=== PATIENT | female | born 1945 | race Hispanic/Latino ===

== ENCOUNTER 2017-09-03 05:47 | Emergency (ER) | payer MEDICARE ==
[2017-09-03 05:47] VITALS: BMI 28.8
--- NOTE | 2017-09-03 06:23 | C.PDOC ---
Time Seen by Provider: 09/03/17 06:12 Chief Complaint (Nursing): Lower Extremity Problem/Injury Past Medical History Vital Signs: Last Vital Signs Temp 97.9 F 09/03/17 05:51 Pulse 75 09/03/17 05:51 Resp 18 09/03/17 05:51 BP 165/67 H 09/03/17 05:51 Pulse Ox 96 09/03/17 05:51 - Medical History PMH: Arthritis, Hiatal Hernia, HTN, Hypercholesterolemia, Hyperthyroidism, Hypothyroidism Surgical History: Denies: Pacemaker Family History: States: CAD - Social History Hx Alcohol Use: Yes (SOCIALLY,BUT NOT IN A YEAR) Hx Substance Use: No - Immunization History Hx Tetanus Toxoid Vaccination: No Hx Influenza Vaccination: Yes Hx Pneumococcal Vaccination: Yes ED Course And Treatment O2 Sat by Pulse Oximetry: 96 Disposition - Disposition Referrals: Linda Haley MD [Primary Care Provider] - Forms: [facility] (Burkinan)
--- NOTE | 2017-09-03 06:24 | C.PDOC ---
History Of Present Illness 72 year old female presents to the ER with a complaint of lower back pain that radiates to the left lower extremity for the past 3 days. Patient states she has a Hx of back pain but notes it is worse now. Patient reports taking motrin yesterday with no relief. Denies trauma, weakness, numbness, or incontinence. Time Seen by Provider: 09/03/17 06:12 Chief Complaint (Nursing): Lower Extremity Problem/Injury History Per: Patient History/Exam Limitations: no limitations Onset/Duration Of Symptoms: Days Current Symptoms Are (Timing): Still Present Recent travel outside of the [place]: No Past Medical History Reviewed: Historical Data, Nursing Documentation, Vital Signs Vital Signs: Last Vital Signs Temp 97.9 F 09/03/17 05:51 Pulse 75 09/03/17 05:51 Resp 18 09/03/17 05:51 BP 165/67 H 09/03/17 05:51 Pulse Ox 96 09/03/17 06:28 - Medical History PMH: Arthritis, Hiatal Hernia, HTN, Hypercholesterolemia, Hyperthyroidism, Hypothyroidism Family History: States: CAD - Social History Hx Alcohol Use: Yes (SOCIALLY,BUT NOT IN A YEAR) Hx Substance Use: No - Immunization History Hx Tetanus Toxoid Vaccination: No Hx Influenza Vaccination: Yes Hx Pneumococcal Vaccination: Yes Review Of Systems Genitourinary: Negative for: Incontinence Musculoskeletal: Positive for: Back Pain, Leg Pain Neurological: Negative for: Weakness, Numbness Physical Exam - Physical Exam Appears: Non-toxic, Other (obese) Skin: Normal Color, Warm, Dry Head: Atraumatic, Normacephalic Eye(s): bilateral: Normal Inspection Back: Paraspinal Tenderness (left lumbar) Extremity: Normal ROM (x4) Neurological/Psych: Oriented x3, Normal Speech, Normal Motor, Normal Sensation Gait: Steady ED Course And Treatment O2 Sat by Pulse Oximetry: 96 (Room air) Pulse Ox Interpretation: Normal Progress Note: Toradol IM and tylenol administered. Patient reports improvement of pain, she is ambulatory in the ER without any pain or discomfort, will discharge home instructions to follow up with PMD. Reevaluation Time: 07:00 Reassessment Condition: Improved Disposition Counseled Patient/Family Regarding: Diagnosis, Need For Followup, Rx Given - Disposition Referrals: Linda Haley MD [Primary Care Provider] - Disposition: HOME/ ROUTINE Disposition Time: 06:49 Condition: STABLE Additional Instructions: Please follw up[ with Dr Haley Continue motrin and tylenol extra strngth Return toER if worse Instructions: Low Back Pain in Adults Forms: [facility] (Lithuanian) - Clinical Impression Clinical Impression: Low back pain - PA / INSURANCE LOSS ASSESSOR / Resident Statement MD/DO has reviewed & agrees with the documentation as recorded. - Scribe Statement The provider has reviewed the documentation as recorded by the Scribliliana Arias All medical record entries made by the Jarrellibliliana were at my direction and personally dictated by me. I have reviewed the chart and agree that the record accurately reflects my personal performance of the history, physical exam, medical decision making, and the department course for this patient. I have also personally directed, reviewed, and agree with the discharge instructions and disposition.
[2017-09-03 07:10] VITALS: BP 148/79; PULSE 81; RESP 20; TEMP 98.1; O2SAT 98
== END 2017-09-03 10:34 | disposition home or self-care (01) ==
LOC: SUPCPDRO 05:47 → C.ER 05:47
DX: M54.5 Low back pain (principal)
CPT/HCPCS: 96372; 99283; J1885

== ENCOUNTER 2017-09-09 12:18 | Inpatient (IN) | payer MEDICARE ==
[2017-09-09 12:19] VITALS: BMI 28.8
[2017-09-09] MEDS ORDERED: Lidocaine 5% Patch TD STA (13:20)
[2017-09-09] MEDS ORDERED: Lidocaine 5% Patch TD ONE (13:43)
--- NOTE | 2017-09-09 13:54 | C.PDOC ---
History Of Present Illness Patient presents to ED with c/o back pain shooting down legs bilaterally for 1+ week. Patient states pain is worse with movement and went to see PMD yesterday, took Tylenol extra strength with no relief. Patient was scheduled CT scan by PMD but pain became worse today prompted visit to ED. Patient reports that she is now taking Percocet without relief and is unable to ambulate. Patient denies abdominal pain, bowel/bladder incontinence, nausea, vomiting, weakness, numbness or any other complaints at this time. Time Seen by Provider: 09/09/17 12:41 Chief Complaint (Nursing): Back Pain History Per: Patient History/Exam Limitations: no limitations Onset/Duration Of Symptoms: Days Current Symptoms Are (Timing): Still Present Quality Of Discomfort: "Pain" Exacerbating Factor(s): Movement Past Medical History Reviewed: Historical Data, Nursing Documentation, Vital Signs Vital Signs: Last Vital Signs Temp 98.5 F 09/09/17 12:31 Pulse 74 09/09/17 12:31 Resp 18 09/09/17 12:31 BP 167/82 H 09/09/17 12:31 Pulse Ox 95 09/09/17 15:31 - Medical History PMH: Arthritis, Hiatal Hernia, HTN, Hypercholesterolemia, Hyperthyroidism, Hypothyroidism Surgical History: No Surg Hx Family History: States: CAD - Social History Hx Alcohol Use: Yes (SOCIALLY,BUT NOT IN A YEAR) Hx Substance Use: No - Immunization History Hx Tetanus Toxoid Vaccination: No Hx Influenza Vaccination: Yes Hx Pneumococcal Vaccination: Yes Review Of Systems Constitutional: Negative for: Fever, Chills Gastrointestinal: Negative for: Nausea, Vomiting, Abdominal Pain Genitourinary: Negative for: Dysuria, Incontinence Musculoskeletal: Positive for: Back Pain, Leg Pain Skin: Negative for: Rash Neurological: Negative for: Weakness, Numbness Physical Exam - Physical Exam Appears: Non-toxic, No Acute Distress Skin: Warm, Dry, No Rash Head: Atraumatic, Normacephalic Eye(s): bilateral: Normal Inspection, PERRL, EOMI Oral Mucosa: Moist Throat: No Erythema, No Exudate Neck: Normal ROM, No Midline Cervical Tenderness, No Paracervical Tenderness, No Step Off Deformity, Supple Chest: Symmetrical, No Tenderness Cardiovascular: Rhythm Regular, No Friction Rub, No Murmur Respiratory: Normal Breath Sounds, No Rales, No Rhonchi, No Wheezing Gastrointestinal/Abdominal: Bowel Sounds (active), Soft, No Tenderness, No Guarding, No Rebound Back: No Vertebral Tenderness, Paraspinal Tenderness, Straight Leg Raising Extremity: Normal ROM, Capillary Refill (<2 seconds), No Swelling Neurological/Psych: Oriented x3, Normal Speech, Normal Cognition, Normal Motor, Normal Sensation Gait: Unable To Assess ED Course And Treatment - Laboratory Results Result Diagrams: 09/09/17 13:42 09/09/17 13:42 O2 Sat by Pulse Oximetry: 95 (RA) Pulse Ox Interpretation: Normal - CT Scan/US CT lumbar/spine Other Rad Studies (CT/US): Read By Radiologist, Radiology Report Reviewed CT/US Interpretation: IMPRESSION: 1. Age indeterminate superior endplate compression fracture deformity in the L4 vertebral body. Severe diffuse bone demineralization. 2. Multilevel degenerative disc disease, worse at L3-4 with mild spinal canal stenosis, right far lateral disc protrusion which compresses the exiting right L3 nerve root and severe right as well as moderate left neural foraminal narrowing. 3. Additional comments as described above. Medical Decision Making Medical Decision Making: Plan: Blood work, CT scan lumbar/spine ordered. Toradol and Lidoderm administered Pain medications given without relief. Decadron and Morphine ordered. The case was discussed with Dr. Andria Haley (PMD) who agrees patient is unsafe for discharge. The case was discussed with Dr. Ryan Haley who agrees to admit the patient for compression fracture and have neurosurgeon consult. Disposition - Disposition Disposition: HOSPITALIZED Disposition Time: 15:33 Condition: FAIR Forms: [facility] (Spanish) - POA Present On Arrival: None - Clinical Impression Clinical Impression: Compression fracture, Intractable back pain - PA / FASHION ARTIST / Resident Statement MD/DO has reviewed & agrees with the documentation as recorded. - Scribe Statement The provider has reviewed the documentation as recorded by the Marvin Garibay All medical record entries made by the Marvin were at my direction and personally dictated by me. I have reviewed the chart and agree that the record accurately reflects my personal performance of the history, physical exam, medical decision making, and the department course for this patient. I have also personally directed, reviewed, and agree with the discharge instructions and disposition.
[2017-09-09 14:00] LABS: BASO # 0.1 K/uL (0.0-0.2); BASO % 1.3 % (0.0-2.0); HEMOGLOBIN 13.3 g/dL (11.0-16.0); MEAN CORPUSCULAR HEMOGLOBIN 31.9 pg (27.0-31.0); MEAN CORPUSCULAR HGB CONC 34.6 g/dL (33.0-37.0); MONO # 0.6 K/uL (0.0-0.8); MONO % 9.2 % (0.0-10.0); NEUT # 4.8 K/uL (1.8-7.0); NEUT % 74.5 % (50.0-75.0); NRBC % 0.1 % (0.0-2.0); RBC 4.18 Mil/uL (3.80-5.20); RED CELL DISTRIBUTION WIDTH 13.4 % (11.5-14.5); WHITE BLOOD COUNT 6.4 K/uL (4.8-10.8)
[2017-09-09 14:02] LABS: MEAN CELL VOLUME 92.1 fL (81.0-99.0)
[2017-09-09 14:17] LABS: ALB/GLOB RATIO 1.1 (1.0-2.1); ALBUMIN 3.6 g/dL (3.5-5.0); ALT/SGPT 9 U/L (9-52); AST/SGOT 15 U/L (14-36); BLOOD UREA NITROGEN 11 mg/dL (7-17); CALCIUM 8.9 mg/dl (8.6-10.4); GFR AFRICAN-AMERICAN > 60; GFR NON-AFRICAN AMERICAN > 60
--- NOTE | 2017-09-09 14:57 | CT ---
PROCEDURE: CT Lumbar Spine without contrast HISTORY: back pain radiating down the legs COMPARISON: None. TECHNIQUE: Axial computed tomography images were obtained of the lumbar spine without the use of intravenous contrast. Coronal and sagittal reformatted images were created and reviewed. Radiation dose: Total exam DLP = 1701.72 mGy-cm. This CT exam was performed using one or more of the following dose reduction techniques: Automated exposure control, adjustment of the mA and/or kV according to patient size, and/or use of iterative reconstruction technique. FINDINGS: VERTEBRAE: There is normal alignment of the lumbar vertebral bodies. There is normal lumbar lordosis. There is an age indeterminate superior endplate compression fracture deformity in the L4 vertebral body. There is severe diffuse bone demineralization. There is no spondylolysis or spondylolisthesis. DISCS/SPINAL CANAL/NEURAL FORAMINA: Evaluation of the discs, spinal canal and nerve roots of cauda equina is limited on noncontrast CT examination. Allowing for this L1-2: Diffuse posterior disc bulge and superimposed right far lateral disc protrusion which abuts the exiting right L1 nerve root. Mild spinal canal stenosis and moderate neural foraminal narrowing. L2-3: Diffuse posterior disc bulge with superimposed right far lateral disc protrusion which abuts the exiting L2 nerve root. Mild spinal canal stenosis and moderate neural foraminal narrowing. L3-4: Diffuse posterior disc bulge with superimposed right far lateral disc protrusion which mildly compresses the exiting right L3 nerve root. Moderate bilateral facet arthropathy contribute to severe right and moderate left neural foraminal narrowing. L4-5: Diffuse posterior disc bulge without spinal canal stenosis. Moderate bilateral facet arthropathy contribute to moderate to severe neural foraminal narrowing. L5-S1: Posterior disc bulge without central spinal canal stenosis. Moderate bilateral facet arthropathy contributes to mild right and severe left neural foraminal narrowing. PARASPINAL SOFT TISSUES: There is fatty atrophy of the paraspinous muscles. OTHER FINDINGS: There is sigmoid diverticulosis without CT evidence for acute diverticulitis. IMPRESSION: 1. Age indeterminate superior endplate compression fracture deformity in the L4 vertebral body. Severe diffuse bone demineralization. 2. Multilevel degenerative disc disease, worse at L3-4 with mild spinal canal stenosis, right far lateral disc protrusion which compresses the exiting right L3 nerve root and severe right as well as moderate left neural foraminal narrowing. 3. Additional comments as described above.
[2017-09-09] MEDS ORDERED: Dexamethasone 4 mg/1 ml IVP STA (15:14)
[2017-09-09] MEDS ORDERED: Morphine 4 MG/ML VIAL ONE (15:24)
[2017-09-09] MEDS ORDERED: Dexamethasone 4 mg/1 ml IVP SCH (16:45)
--- NOTE | 2017-09-09 19:55 | CP.PCM.HP ---
<Nathalie GrovesRaffaele - Last Filed: 09/09/17 19:44> History of Present Illness - History of Present Illness History of Present Illness: CC: low back pain HPI: Patient is a 72 y/o F with PMHX of HTN, HLD, Hypothyroidism, glaucoma bilaterally, and hiatal hernia who presents today for worsening low back pain. Patient states the pain started last week with no inciting event. Everyday the pain has gotten worse. Last week patient came to [facility] and was discharged from the ED. This week (2 days ago) patient finally went to her primary care doctor because the pain was getting worse. Patient was given Percocet, Cyclobenzaprine 10mg, and Meloxicam 7.5mg qid. Patient was told she would need to get a CT. Patient rented out a wheelchair because it was too painful to walk. Patient was going to get a CT tomorrow (the only day someone could help take her), but this morning her pain was very severe. She felt like she could not get out of bed, but was able to once to go to the bathroom to urinate. Patient called her PMD who told her to come to the ED. Patient says she has never had pain like this. Patient explains that the pain radiates from her low back down the posterior left leg to the knee, and down the posterior right leg to the ankle. Patient has had no falls or trauma. Patient denies any incontinence of urine or feces. Patient denies any numbness, tingling or weakness. Patient denies fevers, chills, diaphoresis, headaches, sore throat, chest pain, palpitations, SOB, cough, abdominal pain, nausea, vomiting, diarrhea , constipation, rash, or weight changes. Patient has not travelled recently and has had no sick contacts. PMD: Dr. Juan David Haley Full Code Proxy: Eric Dumont (brother) house phone: [phone], no cell phone PMHX:HTN, HLD, Hypothyroidism, glaucoma bilaterally, and hiatal hernia Psurg: b/l oophorectomy for cysts in 1997, humerus fracture with metal tiago placement 1999, deviated septum 2011 Fam hx: Mom - heart disease, Dad- pacemaker placed at age 75, half sister- open heart surgery, ESRD on dialysis, Brother- CAD, 1 stent placed at 70 Social: denies tobacco or drugs. drinks alcohol a few times per year. lives with brother and nephew. retired 10 years ago Home meds: Latanprost 1 drop per eye daily, Synthroid 100mcg daily, Pantoprazole 40mg daily, Atorvastatin 20mg daily, Diltiazem ER 300mg daily, Losartan/HCTZ unknown dose Present on Admission - Present on Admission Any Indicators Present on Admission: No History of DVT/PE: No History of Uncontrolled Diabetes: No Urinary Catheter: No Decubitus Ulcer Present: No Review of Systems - Constitutional Constitutional: absent: Chills, Fever - EENT Eyes: absent: Blurred Vision Nose/Mouth/Throat: absent: Nasal Congestion, Sore Throat - Cardiovascular Cardiovascular: absent: Chest Pain, Diaphoresis, Dyspnea, Leg Edema, Palpitations - Respiratory Respiratory: absent: Cough - Gastrointestinal Gastrointestinal: absent: Abdominal Pain, Constipation, Diarrhea, Nausea, Vomiting - Genitourinary Genitourinary: absent: Change in Urinary Stream, Dysuria, Hematuria - Musculoskeletal Musculoskeletal: Back Pain, Stiffness. absent: Numbness, Tingling - Integumentary Integumentary: absent: Rash - Neurological Neurological: absent: Tingling, Vertigo, Weakness Past Patient History - Infectious Disease Hx of Infectious Diseases: None - Past Social History Smoking Status: Never Smoked - CARDIAC Hx Hypercholesterolemia: Yes Hx Hypertension: Yes - NEUROLOGICAL Hx Paralysis: No - HEENT Hx Glaucoma: Yes - ENDOCRINE/METABOLIC Hx Hyperthyroidism: Yes Hx Hypothyroidism: Yes - HEMATOLOGICAL/ONCOLOGICAL Hx Blood Transfusions: No Hx Blood Transfusion Reaction: No - MUSCULOSKELETAL/RHEUMATOLOGICAL Hx Arthritis: Yes - PSYCHIATRIC Hx Substance Use: No - SURGICAL HISTORY Hx Surgeries: Yes (NASAL SURGERY 3YRS AGO, CATARACTS 2014, 2013,METAL TIAGO L HUMEROUS) Other/Comment: 8 yrs ago metal tiago to left shoulder post fall. bilat. oopherectomy - ANESTHESIA Hx Anesthesia: Yes Hx Anesthesia Reactions: No Hx Malignant Hyperthermia: No Meds Allergies/Adverse Reactions: Allergies Allergy/AdvReac Type Severity Reaction Status Date / Time No Known Allergies Allergy Verified 09/09/17 12:34 Physical Exam - Constitutional Appears: Non-toxic, No Acute Distress - Head Exam Head Exam: ATRAUMATIC, NORMAL INSPECTION, NORMOCEPHALIC - Eye Exam Eye Exam: EOMI, Normal appearance, PERRL Pupil Exam: NORMAL ACCOMODATION - ENT Exam ENT Exam: Mucous Membranes Moist - Neck Exam Neck exam: Negative for: Tenderness - Respiratory Exam Respiratory Exam: Clear to Auscultation Bilateral, NORMAL BREATHING PATTERN. absent: Rales, Rhonchi, Wheezes, Respiratory Distress, Stridor - Cardiovascular Exam Cardiovascular Exam: REGULAR RHYTHM, RRR, +S1, +S2 - GI/Abdominal Exam GI & Abdominal Exam: Normal Bowel Sounds, Soft. absent: Tenderness - Extremities Exam Extremities exam: Positive for: normal inspection. Negative for: pedal edema, tenderness Additional comments: 5/5 strength both LE full sensation intact pain with passive leg elevation at about 50 degrees bilaterally - Back Exam Back exam: NORMAL INSPECTION, vertebral tenderness Additional comments: low back tenderness - Neurological Exam Neurological exam: Alert, Oriented x3 - Psychiatric Exam Psychiatric exam: Normal Affect, Normal Mood - Skin Skin Exam: Intact, Normal Color, Warm Results - Vital Signs Recent Vital Signs: Last Vital Signs Temp 97.9 F 09/09/17 18:20 Pulse 62 09/09/17 18:20 Resp 20 09/09/17 18:20 BP 162/81 H 09/09/17 18:20 Pulse Ox 96 09/09/17 18:20 - Labs Result Diagrams: 09/09/17 13:42 09/09/17 13:42 Labs: Laboratory Results - last 24 hr 09/09/17 09/09/17 13:42 13:42 WBC 6.4 RBC 4.18 Hgb 13.3 Hct 38.5 MCV 92.1 D MCH 31.9 H MCHC 34.6 RDW 13.4 Plt Count 278 MPV 8.0 Neut % (Auto) 74.5 Lymph % (Auto) 15.0 L [place] % (Auto) 9.2 Eos % (Auto) 0.0 Baso % (Auto) 1.3 Neut # (Auto) 4.8 Lymph # (Auto) 1.0 [place] # (Auto) 0.6 Eos # (Auto) 0.0 Baso # (Auto) 0.1 Sodium 143 Potassium 3.5 L Chloride 105 Carbon Dioxide 26 Anion Gap 16 BUN 11 Creatinine 0.6 L Est GFR ( Amer) > 60 Est GFR (Non-Af Amer) > 60 Random Glucose 95 Calcium 8.9 Total Bilirubin 0.7 AST 15 ALT 9 D Alkaline Phosphatase 155 H Total Protein 6.9 Albumin 3.6 Globulin 3.3 Albumin/Globulin Ratio 1.1 Assessment & Plan - Assessment and Plan (Free Text) Assessment: L4 Vertebral Body Fracture with Spinal Stenosis at L3+L4 and multilevel degenerative disc disease * Decadron 5mg ivp q8h * Neurosurg consulted, Dr. Almodovar, help appreciated * PT/OT eval and treat HTN * Diltiazem 300mg before breakfast * HCTZ 12.5mg before lunch * Losartan 50mg before dinner HLD * Crestor 10mg po HS * f/u Lipid panel Hypothyroidism * Synthroid 100mcg daily * f/u TSH, Free T4 B/L Glaucoma * Latanprost 1 drop per eye daily Hx Hiatal Hernia * Protonix 40mg po daily Prophylaxis * Heparin 5000 sc q8h * SCDs * Protonix 40mg po daily * Heart healthy and low carb diet <Ryan Haley - Last Filed: 09/09/17 20:26> Results - Vital Signs Recent Vital Signs: Last Vital Signs Temp 97.9 F 09/09/17 18:20 Pulse 62 09/09/17 18:20 Resp 20 09/09/17 18:20 BP 162/81 H 09/09/17 18:20 Pulse Ox 96 09/09/17 18:20 - Labs Result Diagrams: 09/09/17 13:42 09/09/17 13:42 Labs: Laboratory Results - last 24 hr 09/09/17 09/09/17 13:42 13:42 WBC 6.4 RBC 4.18 Hgb 13.3 Hct 38.5 MCV 92.1 D MCH 31.9 H MCHC 34.6 RDW 13.4 Plt Count 278 MPV 8.0 Neut % (Auto) 74.5 Lymph % (Auto) 15.0 L [place] % (Auto) 9.2 Eos % (Auto) 0.0 Baso % (Auto) 1.3 Neut # (Auto) 4.8 Lymph # (Auto) 1.0 [place] # (Auto) 0.6 Eos # (Auto) 0.0 Baso # (Auto) 0.1 Sodium 143 Potassium 3.5 L Chloride 105 Carbon Dioxide 26 Anion Gap 16 BUN 11 Creatinine 0.6 L Est GFR ( Amer) > 60 Est GFR (Non-Af Amer) > 60 Random Glucose 95 Calcium 8.9 Total Bilirubin 0.7 AST 15 ALT 9 D Alkaline Phosphatase 155 H Total Protein 6.9 Albumin 3.6 Globulin 3.3 Albumin/Globulin Ratio 1.1 Attending/Attestation - Attestation I have personally seen and examined this patient.: Yes I have fully participated in the care of the patient.: Yes I have reviewed all pertinent clinical information: Yes Notes (Text): 09/09/17 20:26 Exam, assessment and plan and orders were thoroughly gone over with the resident. Ryan Haley D.O.
[2017-09-10] MEDS: Levothyroxine 100 MCG TAB PO SCH (06:22)
[2017-09-10 07:19] LABS: BASO % 0.2 % (0.0-2.0); HEMOGLOBIN 14.6 g/dL (11.0-16.0); LYMPH # 0.5 K/uL (1.0-4.3); MEAN CELL VOLUME 91.3 fL (81.0-99.0); MEAN CORPUSCULAR HEMOGLOBIN 32.2 pg (27.0-31.0); MEAN CORPUSCULAR HGB CONC 35.3 g/dL (33.0-37.0); MONO # 0.1 K/uL (0.0-0.8); MONO % 1.4 % (0.0-10.0); NEUT # 4.3 K/uL (1.8-7.0); NEUT % 87.4 % (50.0-75.0); NRBC % 0.1 % (0.0-2.0); RBC 4.53 Mil/uL (3.80-5.20); RED CELL DISTRIBUTION WIDTH 13.4 % (11.5-14.5); WHITE BLOOD COUNT 4.9 K/uL (4.8-10.8)
[2017-09-10] MEDS: diltiaZEM 300 mg/24 Hours CD Cap PO SCH (07:35)
[2017-09-10] MEDS: Pantoprazole 40 mg EC Tab PO SCH (09:18)
[2017-09-10] MEDS ORDERED: diltiaZEM 300 mg/24 Hours CD Cap PO SCH (10:00)
--- NOTE | 2017-09-10 14:32 | CP.PCM.PN ---
<Nathalie Groves - Last Filed: 09/10/17 17:33> Subjective - Date & Time of Evaluation Date of Evaluation: 09/10/17 Time of Evaluation: 07:00 - Subjective Subjective: PGY1- Progress Note Patient seen and examined at bedside and in no acute distress. Patient says her back pain is fine at rest, but is still very painful with sitting up and movement. Patient denies the rest of ROS including chest pain, shortness of breath, abdominal pain, nausea, vomiting, constipation, or diarrhea. Objective - Vital Signs/Intake and Output Vital Signs (last 24 hours): Temp Pulse Resp BP Pulse Ox 98.1 F 67 18 165/82 H 94 L 09/10/17 07:20 09/10/17 07:20 09/10/17 07:20 09/10/17 07:20 09/10/17 07:20 - Medications Medications: Current Medications Dexamethasone (Decadron Inj) 5 mg IVP Q8H [facility] Last Admin: 09/10/17 09:18 Dose: 5 mg Diltiazem HCl (Cardizem Cd) 300 mg PO ACB [facility] Last Admin: 09/10/17 07:35 Dose: 300 mg Heparin Sodium (Porcine) (Heparin) 5,000 units SC Q8 [facility] Last Admin: 09/10/17 13:49 Dose: 5,000 units Hydrochlorothiazide (Microzide) 12.5 mg PO ACL [facility] Last Admin: 09/10/17 12:35 Dose: 12.5 mg Latanoprost (Xalatan Opht) 0 ml OU HS [facility] Levothyroxine Sodium (Synthroid) 100 mcg PO 0630 [facility] Last Admin: 09/10/17 06:22 Dose: 100 mcg Losartan Potassium (Cozaar) 50 mg PO ACD [facility] Pantoprazole Sodium (Protonix Ec Tab) 40 mg PO DAILY [facility] Last Admin: 09/10/17 09:18 Dose: 40 mg Rosuvastatin Calcium (Crestor) 10 mg PO HS [facility] Last Admin: 09/09/17 21:43 Dose: 10 mg - Labs Labs: 09/10/17 07:04 09/09/17 13:42 - Additional Findings Additional findings: - Constitutional Appears: Non-toxic, No Acute Distress - Head Exam Head Exam: ATRAUMATIC, NORMAL INSPECTION, NORMOCEPHALIC - Eye Exam Eye Exam: EOMI, Normal appearance, PERRL Pupil Exam: NORMAL ACCOMODATION - ENT Exam ENT Exam: Mucous Membranes Moist - Neck Exam Neck exam: Negative for: Tenderness - Respiratory Exam Respiratory Exam: Clear to Auscultation Bilateral, NORMAL BREATHING PATTERN. absent: Rales, Rhonchi, Wheezes, Respiratory Distress, Stridor - Cardiovascular Exam Cardiovascular Exam: REGULAR RHYTHM, RRR, +S1, +S2 - GI/Abdominal Exam GI & Abdominal Exam: Normal Bowel Sounds, Soft. absent: Tenderness - Extremities Exam Extremities exam: Positive for: normal inspection. Negative for: pedal edema, tenderness Additional comments: 5/5 strength both LE full sensation intact - Back Exam Back exam: NORMAL INSPECTION, vertebral tenderness Additional comments: low back tenderness - Neurological Exam Neurological exam: Alert, Oriented x3 - Psychiatric Exam Psychiatric exam: Normal Affect, Normal Mood - Skin Skin Exam: Intact, Normal Color, Warm Assessment and Plan - Assessment and Plan (Free Text) Assessment: L4 Vertebral Body Fracture with Spinal Stenosis at L3+L4 and multilevel degenerative disc disease * Decadron 5mg ivp q8h * Neurosurg consulted, Dr. Almodovar, help appreciated * MRI: apparent fracture traversing the S1-S2 segments with edema in S1, S2 as well as S3 segments best seen on sagittal STIR sequence. multilevel degenerative spondylosis as detailed above. * As per neurosurgery patient would benefit from injection by pain management, will consult * no neurosurgical intervention advised, no brace advised * PT/OT eval and treat HTN * Diltiazem 300mg before breakfast * HCTZ 12.5mg before lunch * Losartan 50mg before dinner HLD * Crestor 10mg po HS * Triglycerides: 86, Cholesterol: 220, LDL: 117, HDL: 67 Hypothyroidism * Synthroid 100mcg daily * TSH: 3.22, Free T4: 1.27 B/L Glaucoma * Latanprost 1 drop per eye daily Hx Hiatal Hernia * Protonix 40mg po daily Prophylaxis * Heparin 5000 sc q8h * SCDs * Protonix 40mg po daily * Heart healthy and low carb diet <Ryan Haley - Last Filed: 09/10/17 18:44> Objective - Vital Signs/Intake and Output Vital Signs (last 24 hours): Temp Pulse Resp BP Pulse Ox 98 F 68 20 150/72 95 09/10/17 15:45 09/10/17 15:45 09/10/17 15:45 09/10/17 15:45 09/10/17 15:45 Intake and Output: 09/10/17 09/10/17 06:59 18:59 Intake Total 300 Balance 300 - Medications Medications: Current Medications Dexamethasone (Decadron Inj) 5 mg IVP Q8H [facility] Last Admin: 09/10/17 17:18 Dose: 5 mg Diltiazem HCl (Cardizem Cd) 300 mg PO ACB [facility] Last Admin: 09/10/17 07:35 Dose: 300 mg Heparin Sodium (Porcine) (Heparin) 5,000 units SC Q8 [facility] Last Admin: 09/10/17 13:49 Dose: 5,000 units Hydrochlorothiazide (Microzide) 12.5 mg PO ACL [facility] Last Admin: 09/10/17 12:35 Dose: 12.5 mg Latanoprost (Xalatan Opht) 0 ml OU HS [facility] Levothyroxine Sodium (Synthroid) 100 mcg PO 0630 [facility] Last Admin: 09/10/17 06:22 Dose: 100 mcg Losartan Potassium (Cozaar) 50 mg PO ACD [facility] Last Admin: 09/10/17 17:18 Dose: 50 mg Pantoprazole Sodium (Protonix Ec Tab) 40 mg PO DAILY [facility] Last Admin: 09/10/17 09:18 Dose: 40 mg Rosuvastatin Calcium (Crestor) 10 mg PO HS [facility] Last Admin: 09/09/17 21:43 Dose: 10 mg - Labs Labs: 09/10/17 07:04 09/09/17 13:42 Attending/Attestation - Attestation I have personally seen and examined this patient.: Yes I have fully participated in the care of the patient.: Yes I have reviewed all pertinent clinical information, including history, physical exam and plan: Yes Notes (Text): 09/10/17 18:42 Patient was seen and examined at 3:15 PM Exam, assessment and plan were gone over with the resident Also on ROS: Moved her bowels and was able to use bed ng (she was afraid upon admission that she was not going to be able to do this) Medicine Team will reach out to Anesthesia 09/11/17 concerning the possibility of neuroforaminal injection as recommended by Neurosurgery. Ryan Hlaey D.O.
--- NOTE | 2017-09-10 15:20 | MRI ---
PROCEDURE: MRI lumbar spine dated 09/10/2017. HISTORY: Stenosis-fracture. Compression fracture. . Intractable pain. COMPARISON: Comparison made with CT scan of the lumbar spine dated 09/09/2017 TECHNIQUE: Multiecho multiplanar sequences were performed through the lumbar spine without the use of intravenous contrast. FINDINGS: The current study reveals. Edema within the S1, S2 and C3 segments consistent acute fracture and secondary edema. . No additional acute compression fractures no retropulsed fragments. . There are chronic appearing compression deformities of the L4, and L5 segments with scattered chronic appearing Schmorl's nodes at the L2-L3 and L1-L2 levels. . Remaining vertebral bodies otherwise exhibit normal stature. Vertebral bodies and facets normally aligned. Multilevel degenerative spondylosis. T12-L1: Mild age related disc desiccation. No disc herniation or significant disc bulge. L1-2: Mild age related disc desiccation and posterior disc space narrowing. Asymmetric disc ridge complex larger on the right than left compresses the ventral surface of the thecal sac centrally and to the to the right more so than left. Lateral recesses are narrowed on the right and adequate on the left. Central canal measured at midline is slightly narrowed. Exit foramina are marginal to slightly narrowed on the left and adequate on the right. L2-3: There is disc desiccation and disc space narrowing with small broad-based disc ridge complex that also extends into the proximal inferior margins of both exit foramina. The facets also mildly hypertrophic. Changes result in mild compressive effects on the ventral surface of the thecal sac and mild bilateral lateral recess narrowing. Central canal is marginal to minimally narrowed. Exit foramina are narrowed on the right and adequate on the left. L3-4: There is disc desiccation. Note also that inferior margin of the L3-L4 disc extends inferiorly through a defect within the superior L4 endplate. Small broad-based disc ridge complex extends into the proximal inferior margins of both exit foramina. Facet joints also hypertrophic. Lateral recesses are narrowed bilaterally more so on the left side. Central canal is slightly narrowed as well. Facet joints are hypertrophic. Exit foramina are narrowed on the right and adequate on the left. L4-5: There is mild on age related disc desiccation. Note that the inferior margin of the L4-L5 disc extends inferiorly through a mid and left parasagittal endplate defect. There is mild broad-based disc ridge complex that also extends slightly into the inferior margins of both exit foramina. Facet joints are hypertrophic. The lateral recesses are slightly narrowed more so on the left side. Central canal measured at midline is marginal to minimally narrowed. The proximal exit foramina are marginal however the mid and lateral margins of the exit foramina adequate. L5-S1: Mild disc desiccation and minor posterior disc space narrowing. . Small central and bilateral disc bulge minimally if at all flattens the ventral surface of thecal sac however the overall central canal is adequate. Facets are hypertrophic. . Exit foramina are stenotic on the left side due to encroaching disc and facet joint changes. Right exit foramen is adequate. OTHER FINDINGS: Conus terminates at approximately the inferior L1 level. IMPRESSION: Apparent fracture traversing the S1-S2 segments with edema in S1, S2 as well as S3 segments best seen on sagittal STIR sequence. Multilevel degenerative spondylosis as detailed above.
[2017-09-10] MEDS: Latanoprost 2.5 ml Opht Soln OU SCH (22:03)
--- NOTE | 2017-09-11 00:05 | CP.PCM.PN ---
<Eric Jiménez - Last Filed: 09/11/17 00:01> Subjective - Date & Time of Evaluation Date of Evaluation: 09/11/17 Time of Evaluation: 00:01 - Subjective Subjective: Patient seen and examined at bedside Doing well Still complaining of pain in the back whenever she tries to move her legs or get up from bed. No other complaints at this time Objective - Vital Signs/Intake and Output Vital Signs (last 24 hours): Temp Pulse Resp BP Pulse Ox 98 F 68 20 150/72 95 09/10/17 15:45 09/10/17 15:45 09/10/17 15:45 09/10/17 15:45 09/10/17 15:45 Intake and Output: 09/10/17 09/11/17 18:59 06:59 Intake Total 300 320 Balance 300 320 - Medications Medications: Current Medications Dexamethasone (Decadron Inj) 5 mg IVP Q8H [facility] Last Admin: 09/10/17 17:18 Dose: 5 mg Diltiazem HCl (Cardizem Cd) 300 mg PO ACB [facility] Last Admin: 09/10/17 07:35 Dose: 300 mg Heparin Sodium (Porcine) (Heparin) 5,000 units SC Q8 [facility] Last Admin: 09/10/17 22:03 Dose: 5,000 units Hydrochlorothiazide (Microzide) 12.5 mg PO ACL [facility] Last Admin: 09/10/17 12:35 Dose: 12.5 mg Latanoprost (Xalatan Opht) 0 ml OU HS [facility] Last Admin: 09/10/17 22:03 Dose: 1 ml Levothyroxine Sodium (Synthroid) 100 mcg PO 0630 [facility] Last Admin: 09/10/17 06:22 Dose: 100 mcg Losartan Potassium (Cozaar) 50 mg PO ACD [facility] Last Admin: 09/10/17 17:18 Dose: 50 mg Pantoprazole Sodium (Protonix Ec Tab) 40 mg PO DAILY [facility] Last Admin: 09/10/17 09:18 Dose: 40 mg Rosuvastatin Calcium (Crestor) 10 mg PO HS [facility] Last Admin: 09/10/17 22:03 Dose: 10 mg - Labs Labs: 09/10/17 07:04 09/09/17 13:42 - Constitutional Appears: Well - Head Exam Head Exam: ATRAUMATIC, NORMAL INSPECTION, NORMOCEPHALIC - Eye Exam Eye Exam: EOMI, Normal appearance, PERRL Pupil Exam: NORMAL ACCOMODATION, PERRL - ENT Exam ENT Exam: Mucous Membranes Moist, Normal Exam - Neck Exam Neck Exam: Full ROM, Normal Inspection. absent: Lymphadenopathy - Respiratory Exam Respiratory Exam: Clear to Ausculation Bilateral, NORMAL BREATHING PATTERN - Cardiovascular Exam Cardiovascular Exam: REGULAR RHYTHM, +S1, +S2. absent: Murmur - GI/Abdominal Exam GI & Abdominal Exam: Soft, Normal Bowel Sounds. absent: Tenderness - Extremities Exam Extremities Exam: Full ROM, Normal Capillary Refill, Normal Inspection. absent : Joint Swelling, Pedal Edema - Back Exam Back Exam: NORMAL INSPECTION - Neurological Exam Neurological Exam: Alert, Awake, CN II-XII Intact, Normal Gait, Oriented x3 - Psychiatric Exam Psychiatric exam: Normal Affect, Normal Mood - Skin Skin Exam: Dry, Intact, Normal Color, Warm Assessment and Plan (1) Lumbar vertebral fracture Assessment & Plan: Decadron 5mg IVP Q8H Neurosurg ([facility]) * Consult pain management for neuroforaminal injection * no neurosurgical intervention advised MRI: apparent fracture traversing the S1-S2 segments with edema in S1, S2 as well as S3 segments best seen on sagittal STIR sequence. multilevel degenerative spondylosis as detailed above. PT/OT eval and treat Status: Acute (2) HTN (hypertension) Assessment & Plan: Diltiazem 300mg before breakfast HCTZ 12.5mg before lunch Losartan 50mg before dinner Status: Chronic (3) HLD (hyperlipidemia) Assessment & Plan: Crestor 10mg po HS Status: Chronic (4) Hypothyroidism Assessment & Plan: Synthroid 100mcg daily Status: Chronic (5) Glaucoma Assessment & Plan: Latanprost 1 drop per eye daily Status: Chronic (6) Hiatal hernia Assessment & Plan: Protonix 40mg po daily Status: Chronic (7) Prophylactic measure Assessment & Plan: Heparin 5000 sc q8h * SCDs * Protonix 40mg po daily * Heart healthy and low carb diet Status: Acute <Ryan Haley - Last Filed: 09/11/17 17:21> Objective - Vital Signs/Intake and Output Vital Signs (last 24 hours): Temp Pulse Resp BP Pulse Ox 98.3 F 66 20 146/81 92 L 09/11/17 15:45 09/11/17 15:45 09/11/17 15:45 09/11/17 15:45 09/11/17 15:45 Intake and Output: 09/11/17 09/11/17 06:59 18:59 Intake Total 320 400 Output Total 400 300 Balance -80 100 - Medications Medications: Current Medications Dexamethasone (Decadron Inj) 5 mg IVP Q8H [facility] Last Admin: 09/11/17 09:13 Dose: 5 mg Diltiazem HCl (Cardizem Cd) 300 mg PO ACB [facility] Last Admin: 09/11/17 07:54 Dose: 300 mg Heparin Sodium (Porcine) (Heparin) 5,000 units SC Q8 [facility] Last Admin: 09/11/17 13:40 Dose: 5,000 units Hydrochlorothiazide (Microzide) 12.5 mg PO ACL [facility] Last Admin: 09/11/17 11:32 Dose: 12.5 mg Latanoprost (Xalatan Opht) 0 ml OU HS [facility] Last Admin: 09/10/17 22:03 Dose: 1 ml Levothyroxine Sodium (Synthroid) 100 mcg PO 0630 [facility] Last Admin: 09/11/17 05:49 Dose: 100 mcg Losartan Potassium (Cozaar) 50 mg PO ACD [facility] Last Admin: 09/10/17 17:18 Dose: 50 mg Pantoprazole Sodium (Protonix Ec Tab) 40 mg PO DAILY [facility] Last Admin: 09/11/17 09:13 Dose: 40 mg Rosuvastatin Calcium (Crestor) 10 mg PO HS [facility] Last Admin: 09/10/17 22:03 Dose: 10 mg - Labs Labs: 09/11/17 07:07 09/11/17 07:07 Attending/Attestation - Attestation I have personally seen and examined this patient.: Yes I have fully participated in the care of the patient.: Yes I have reviewed all pertinent clinical information, including history, physical exam and plan: Yes Notes (Text): 09/11/17 17:00 Patient was seen and examined at 8:00 AM Also on ROS: Has not moved her bowels yet today (last bowel movement was 09/10/17) NO paresthesias NO loss of bowel/bladder control Pain in the low back is controlled at this time and will only occur if she moves a particular way while in bed of if she stands on her feet (as occurred during attempt at PT on 09/10/17: pain shoots down bilateral buttocks to the posterior aspect of Right LE all the way down to Right Ankle and posterior aspect of Left LE down to the Left Popliteal Fossa Also on Exam: NO ulcers noted on any of the waldo prominences (examined with Resident Dr. Cora Groves) Spoke with Anesthesiologist Dr. Burroughs and explained findings on MRI, recommendations by Neurosurgery that spinal/facet injection was advised so that the patient can participate in PT so that we could eventually get patient to [facility]. I also expressed Dr. Burroughs my concerns that Pain Management (which is managed by the Anesthesiologist at this hospital) has been slow to respond or not at all to my requests in the past. He assured me that he would speak with with Dr. Graham and/or Dr. Belcher concerning this patient. We will continue the Decadron until patient gets the spinal/facet injection as this has certainly helped control the patient's pain. Ryan Haley D.O.
[2017-09-11] MEDS: Levothyroxine 100 MCG TAB PO SCH (05:49)
[2017-09-11 07:13] LABS: HEMOGLOBIN 14.8 g/dL (11.0-16.0); LYMPH # 0.7 K/uL (1.0-4.3); MEAN CELL VOLUME 90.9 fL (81.0-99.0); MEAN CORPUSCULAR HEMOGLOBIN 32.2 pg (27.0-31.0); MEAN CORPUSCULAR HGB CONC 35.4 g/dL (33.0-37.0); MONO # 0.3 K/uL (0.0-0.8); MONO % 2.9 % (0.0-10.0); NEUT # 9.9 K/uL (1.8-7.0); NEUT % 91.1 % (50.0-75.0); PLATELET COUNT 310 K/uL (130-400); RBC 4.61 Mil/uL (3.80-5.20); WHITE BLOOD COUNT 10.9 K/uL (4.8-10.8)
[2017-09-11] MEDS: diltiaZEM 300 mg/24 Hours CD Cap PO SCH (07:54)
[2017-09-11 08:25] LABS: ALBUMIN 3.6 g/dL (3.5-5.0); ALT/SGPT 12 U/L (9-52); AST/SGOT 18 U/L (14-36); BLOOD UREA NITROGEN 28 mg/dL (7-17); CALCIUM 9.2 mg/dl (8.6-10.4); GFR AFRICAN-AMERICAN > 60; GFR NON-AFRICAN AMERICAN > 60
[2017-09-11] MEDS: Pantoprazole 40 mg EC Tab PO SCH (09:13)
--- NOTE | 2017-09-11 10:47 | CP.PCM.CON ---
History of Present Illness - History of Present Illness History of Present Illness: Pain management consult discussed with Dr Denisse Santana: Case and findings including CT and MRI results reviewed. Defer to surgery for management of fractures; or consult IR for kypho- or vertebroplasty. For acute pain, recommend adding pain medication which the pt currently is on none: For moderate pain -- 1-2 tabs Percocet PO q4hrs For severe pain -- Dilaudid 1mg IV [id number] Also recommend adding -- Lidoderm Patch, Gabapentin 100mg PO TID, and Toradol 30mg IV q8hrs up to 9 doses assuming renal function remains normal. Past Patient History - Infectious Disease Hx of Infectious Diseases: None - Past Medical History & Family History Past Medical History?: Yes - Past Social History Smoking Status: Never Smoked - CARDIAC Hx Hypercholesterolemia: Yes Hx Hypertension: Yes - PULMONARY Hx Respiratory Disorders: No - NEUROLOGICAL Hx Paralysis: No - HEENT Hx Glaucoma: Yes - RENAL Hx Chronic Kidney Disease: No - ENDOCRINE/METABOLIC Hx Hypothyroidism: Yes - HEMATOLOGICAL/ONCOLOGICAL Hx Blood Transfusions: No Hx Blood Transfusion Reaction: No - INTEGUMENTARY Hx Dermatological Problems: No - MUSCULOSKELETAL/RHEUMATOLOGICAL Hx Arthritis: Yes - GASTROINTESTINAL Hx Gastrointestinal Disorders: No - GENITOURINARY/GYNECOLOGICAL Hx Genitourinary Disorders: No - PSYCHIATRIC Hx Substance Use: No - SURGICAL HISTORY Hx Surgeries: Yes (NASAL SURGERY 3YRS AGO, CATARACTS 2014, 2013,METAL TIAGO L HUMEROUS) Other/Comment: 8 yrs ago metal tiago to left shoulder post fall. bilat. oopherectomy - ANESTHESIA Hx Anesthesia: Yes Hx Anesthesia Reactions: No Hx Malignant Hyperthermia: No Meds Allergies/Adverse Reactions: Allergies Allergy/AdvReac Type Severity Reaction Status Date / Time No Known Allergies Allergy Verified 09/09/17 12:34 - Medications Medications: Current Medications Dexamethasone (Decadron Inj) 5 mg IVP Q8H [facility] Last Admin: 09/11/17 09:13 Dose: 5 mg Diltiazem HCl (Cardizem Cd) 300 mg PO ACB [facility] Last Admin: 09/11/17 07:54 Dose: 300 mg Heparin Sodium (Porcine) (Heparin) 5,000 units SC Q8 [facility] Last Admin: 09/11/17 05:49 Dose: 5,000 units Hydrochlorothiazide (Microzide) 12.5 mg PO ACL [facility] Last Admin: 09/10/17 12:35 Dose: 12.5 mg Latanoprost (Xalatan Opht) 0 ml OU HS [facility] Last Admin: 09/10/17 22:03 Dose: 1 ml Levothyroxine Sodium (Synthroid) 100 mcg PO 0630 [facility] Last Admin: 09/11/17 05:49 Dose: 100 mcg Losartan Potassium (Cozaar) 50 mg PO ACD [facility] Last Admin: 09/10/17 17:18 Dose: 50 mg Pantoprazole Sodium (Protonix Ec Tab) 40 mg PO DAILY [facility] Last Admin: 09/11/17 09:13 Dose: 40 mg Rosuvastatin Calcium (Crestor) 10 mg PO HS [facility] Last Admin: 09/10/17 22:03 Dose: 10 mg Results - Vital Signs Recent Vital Signs: Last Vital Signs Temp 97.7 F 09/11/17 08:35 Pulse 60 09/11/17 08:35 Resp 18 09/11/17 08:35 BP 151/79 H 09/11/17 08:35 Pulse Ox 94 L 09/11/17 08:35 - Labs Result Diagrams: 09/11/17 07:07 09/11/17 07:07 Labs: Laboratory Results - last 24 hr 09/11/17 09/11/17 07:07 07:07 WBC 10.9 H D RBC 4.61 Hgb 14.8 Hct 41.9 MCV 90.9 MCH 32.2 H MCHC 35.4 RDW 13.0 Plt Count 310 MPV 8.0 Neut % (Auto) 91.1 H Lymph % (Auto) 6.0 L [place] % (Auto) 2.9 Eos % (Auto) 0.0 Baso % (Auto) 0.0 Neut # (Auto) 9.9 H Lymph # (Auto) 0.7 L [place] # (Auto) 0.3 Eos # (Auto) 0.0 Baso # (Auto) 0.0 Sodium 142 Potassium 3.9 Chloride 105 Carbon Dioxide 26 Anion Gap 15 BUN 28 H Creatinine 0.7 Est GFR ( Amer) > 60 Est GFR (Non-Af Amer) > 60 Random Glucose 144 H Calcium 9.2 Phosphorus 3.8 Magnesium 2.2 Total Bilirubin 0.6 AST 18 ALT 12 Alkaline Phosphatase 180 H Total Protein 7.4 Albumin 3.6 Globulin 3.7 Albumin/Globulin Ratio 1.0
[2017-09-11 11:12] LABS: LYMPHOCYTE 5 % (20-40); MONOCYTE 2 % (0-10); NEUTROPHIL 93 % (50-75); PLATELET ESTIMATE NORMAL (NORMAL); TOTAL CELLS COUNTED 100
[2017-09-11 11:13] LABS: ANISOCYTOSIS SLIGHT; LARGE PLATELETS PRESENT; POLYCHROMIC SLIGHT
--- NOTE | 2017-09-11 16:48 | CP.PCM.CON ---
History of Present Illness - History of Present Illness History of Present Illness: Podiatry Consult Note: Dr. Garcia 72 year old female with PMHX of HTN, HLD, Hypothyroidism, glaucoma bilaterally, and hiatal hernia was seen and evaluated for onychomycosis. Reports that shs has had discolored nails for about 6 months. Reports that about 6 months ago she dropped something on her right big toe in the attic at home and bled under her nail. Reports that since then the color on the nail is different than it use to be. Denies of any other pedal complains at this time. Denies of recent F/ N/V/C/SOB/CP/headache. PMHX:HTN, HLD, Hypothyroidism, glaucoma bilaterally, and hiatal hernia PSHx: b/l oophorectomy for cysts in 1997, humerus fracture with metal tiago placement 1999, deviated septum 2011 SHx: denies tobacco or drugs. drinks alcohol a few times per year. Allergies: N.K.D.A Review of Systems - Constitutional Constitutional: As Per HPI Past Patient History - Infectious Disease Hx of Infectious Diseases: None - Past Medical History & Family History Past Medical History?: Yes - Past Social History Smoking Status: Never Smoked - CARDIAC Hx Hypercholesterolemia: Yes Hx Hypertension: Yes - PULMONARY Hx Respiratory Disorders: No - NEUROLOGICAL Hx Paralysis: No - HEENT Hx Glaucoma: Yes - RENAL Hx Chronic Kidney Disease: No - ENDOCRINE/METABOLIC Hx Hypothyroidism: Yes - HEMATOLOGICAL/ONCOLOGICAL Hx Blood Transfusions: No Hx Blood Transfusion Reaction: No - INTEGUMENTARY Hx Dermatological Problems: No - MUSCULOSKELETAL/RHEUMATOLOGICAL Hx Arthritis: Yes - GASTROINTESTINAL Hx Gastrointestinal Disorders: No - GENITOURINARY/GYNECOLOGICAL Hx Genitourinary Disorders: No - PSYCHIATRIC Hx Substance Use: No - SURGICAL HISTORY Hx Surgeries: Yes (NASAL SURGERY 3YRS AGO, CATARACTS 2014, 2013,METAL TIAGO L HUMEROUS) Other/Comment: 8 yrs ago metal tiago to left shoulder post fall. bilat. oopherectomy - ANESTHESIA Hx Anesthesia: Yes Hx Anesthesia Reactions: No Hx Malignant Hyperthermia: No Meds Allergies/Adverse Reactions: Allergies Allergy/AdvReac Type Severity Reaction Status Date / Time No Known Allergies Allergy Verified 09/09/17 12:34 - Medications Medications: Current Medications Dexamethasone (Decadron Inj) 5 mg IVP Q8H [facility] Last Admin: 09/11/17 09:13 Dose: 5 mg Diltiazem HCl (Cardizem Cd) 300 mg PO ACB [facility] Last Admin: 09/11/17 07:54 Dose: 300 mg Heparin Sodium (Porcine) (Heparin) 5,000 units SC Q8 [facility] Last Admin: 09/11/17 13:40 Dose: 5,000 units Hydrochlorothiazide (Microzide) 12.5 mg PO ACL [facility] Last Admin: 09/11/17 11:32 Dose: 12.5 mg Latanoprost (Xalatan Opht) 0 ml OU HS [facility] Last Admin: 09/10/17 22:03 Dose: 1 ml Levothyroxine Sodium (Synthroid) 100 mcg PO 0630 [facility] Last Admin: 09/11/17 05:49 Dose: 100 mcg Losartan Potassium (Cozaar) 50 mg PO ACD [facility] Last Admin: 09/10/17 17:18 Dose: 50 mg Pantoprazole Sodium (Protonix Ec Tab) 40 mg PO DAILY [facility] Last Admin: 09/11/17 09:13 Dose: 40 mg Rosuvastatin Calcium (Crestor) 10 mg PO HS [facility] Last Admin: 09/10/17 22:03 Dose: 10 mg Physical Exam - Constitutional Appears: Well, Non-toxic, No Acute Distress - Extremities Exam Additional comments: Bilateral LE focused exam: VASC: DP/PT pulses are palpable 2/4 B/L. Cap refill time: < 3 seconds to all digits. Skin temperature warm to cool from proximal to distal. 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 - Neurological Exam Neurological exam: Alert, Oriented x3 - Psychiatric Exam Psychiatric exam: Normal Affect, Normal Mood Results - Vital Signs Recent Vital Signs: Last Vital Signs Temp 98.3 F 09/11/17 15:45 Pulse 66 09/11/17 15:45 Resp 20 09/11/17 15:45 BP 146/81 09/11/17 15:45 Pulse Ox 92 L 09/11/17 15:45 - Labs Result Diagrams: 09/11/17 07:07 09/11/17 07:07 Labs: Laboratory Results - last 24 hr 09/11/17 09/11/17 07:07 07:07 WBC 10.9 H D RBC 4.61 Hgb 14.8 Hct 41.9 MCV 90.9 MCH 32.2 H MCHC 35.4 RDW 13.0 Plt Count 310 MPV 8.0 Neut % (Auto) 91.1 H Lymph % (Auto) 6.0 L [place] % (Auto) 2.9 Eos % (Auto) 0.0 Baso % (Auto) 0.0 Neut # (Auto) 9.9 H Lymph # (Auto) 0.7 L [place] # (Auto) 0.3 Eos # (Auto) 0.0 Baso # (Auto) 0.0 Neutrophils % (Manual) 93 H Lymphocytes % (Manual) 5 L Monocytes % (Manual) 2 Platelet Estimate Normal Large Platelets Present Polychromasia Slight Anisocytosis (manual) Slight Sodium 142 Potassium 3.9 Chloride 105 Carbon Dioxide 26 Anion Gap 15 BUN 28 H Creatinine 0.7 Est GFR ( Amer) > 60 Est GFR (Non-Af Amer) > 60 Random Glucose 144 H Calcium 9.2 Phosphorus 3.8 Magnesium 2.2 Total Bilirubin 0.6 AST 18 ALT 12 Alkaline Phosphatase 180 H Total Protein 7.4 Albumin 3.6 Globulin 3.7 Albumin/Globulin Ratio 1.0 Assessment & Plan - Assessment and Plan (Free Text) Assessment: 89 year old male patient evaluated for onychomycosis Plan: Patient seen and evaluated at bedside Discussed plan with attending Dr. Radha Mcdowell reviewed Aseptic debridement of nails using clippers Educated to follow up with Dr. Garcia upon discharge from the hospital Thank you for this interesting podiatry consult and allowing to take part in patient care - Date & Time Date: 09/11/17 Time: 16:51
[2017-09-11] MEDS: Latanoprost 2.5 ml Opht Soln OU SCH (21:15)
--- NOTE | 2017-09-12 00:08 | CP.PCM.PN ---
<Eric Jiménez - Last Filed: 09/12/17 00:05> Subjective - Date & Time of Evaluation Date of Evaluation: 09/12/17 Time of Evaluation: 00:05 - Subjective Subjective: Patient seen and examined at bedside still complaining of pain on movement but pain is controlled as she lies in bed Denies any weakness or tingling, Denies numbness Denies any bladder or bowel incontinence or saddle paresethsias. Objective - Vital Signs/Intake and Output Vital Signs (last 24 hours): Temp Pulse Resp BP Pulse Ox 98.3 F 66 20 146/81 92 L 09/11/17 15:45 09/11/17 15:45 09/11/17 15:45 09/11/17 15:45 09/11/17 15:45 Intake and Output: 09/11/17 09/12/17 18:59 06:59 Intake Total 400 Output Total 300 400 Balance 100 -400 - Medications Medications: Current Medications Dexamethasone (Decadron Inj) 5 mg IVP Q8H [facility] Last Admin: 09/11/17 17:28 Dose: 5 mg Diltiazem HCl (Cardizem Cd) 300 mg PO ACB [facility] Last Admin: 09/11/17 07:54 Dose: 300 mg Heparin Sodium (Porcine) (Heparin) 5,000 units SC Q8 [facility] Last Admin: 09/11/17 21:14 Dose: 5,000 units Hydrochlorothiazide (Microzide) 12.5 mg PO ACL [facility] Last Admin: 09/11/17 11:32 Dose: 12.5 mg Latanoprost (Xalatan Opht) 0 ml OU HS [facility] Last Admin: 09/11/17 21:15 Dose: 2.5 ml Levothyroxine Sodium (Synthroid) 100 mcg PO 0630 [facility] Last Admin: 09/11/17 05:49 Dose: 100 mcg Losartan Potassium (Cozaar) 50 mg PO ACD [facility] Last Admin: 09/11/17 17:28 Dose: 50 mg Pantoprazole Sodium (Protonix Ec Tab) 40 mg PO DAILY [facility] Last Admin: 09/11/17 09:13 Dose: 40 mg Rosuvastatin Calcium (Crestor) 10 mg PO HS [facility] Last Admin: 09/11/17 21:14 Dose: 10 mg - Labs Labs: 09/11/17 07:07 09/11/17 07:07 - Constitutional Appears: Well - Head Exam Head Exam: ATRAUMATIC, NORMAL INSPECTION, NORMOCEPHALIC - Eye Exam Eye Exam: EOMI, Normal appearance, PERRL Pupil Exam: NORMAL ACCOMODATION, PERRL - ENT Exam ENT Exam: Mucous Membranes Moist, Normal Exam - Neck Exam Neck Exam: Full ROM, Normal Inspection. absent: Lymphadenopathy - Respiratory Exam Respiratory Exam: Clear to Ausculation Bilateral, NORMAL BREATHING PATTERN - Cardiovascular Exam Cardiovascular Exam: REGULAR RHYTHM, +S1, +S2. absent: Murmur - GI/Abdominal Exam GI & Abdominal Exam: Soft, Normal Bowel Sounds. absent: Tenderness - Extremities Exam Extremities Exam: Full ROM, Normal Capillary Refill, Normal Inspection. absent : Joint Swelling, Pedal Edema - Back Exam Back Exam: NORMAL INSPECTION - Neurological Exam Neurological Exam: Alert, Awake, CN II-XII Intact, Normal Gait, Oriented x3 - Psychiatric Exam Psychiatric exam: Normal Affect, Normal Mood - Skin Skin Exam: Dry, Intact, Normal Color, Warm Assessment and Plan - Assessment and Plan (Free Text) Assessment: (1) Lumbar vertebral fracture Assessment & Plan: Decadron 5mg IVP Q8H [place]surg ([facility] [place]) * Consult pain management for neuroforaminal injection * no neurosurgical intervention advised Pain management advising for kyphoplasty/Pain medication MRI: apparent fracture traversing the S1-S2 segments with edema in S1, S2 as well as S3 segments best seen on sagittal STIR sequence. multilevel degenerative spondylosis as detailed above. PT/OT eval and treat Status: Acute (2) HTN (hypertension) Assessment & Plan: Diltiazem 300mg before breakfast HCTZ 12.5mg before lunch Losartan 50mg before dinner Status: Chronic (3) HLD (hyperlipidemia) Assessment & Plan: Crestor 10mg po HS Status: Chronic (4) Hypothyroidism Assessment & Plan: Synthroid 100mcg daily Status: Chronic (5) Glaucoma Assessment & Plan: Latanprost 1 drop per eye daily Status: Chronic (6) Hiatal hernia Assessment & Plan: Protonix 40mg po daily Status: Chronic (7) Prophylactic measure Assessment & Plan: Heparin 5000 sc q8h * SCDs * Protonix 40mg po daily * Heart healthy and low carb diet Status: Acute <Ryan Haley - Last Filed: 09/12/17 12:43> Objective - Vital Signs/Intake and Output Vital Signs (last 24 hours): Temp Pulse Resp BP Pulse Ox 97.1 F L 61 20 156/72 H 98 09/12/17 08:00 09/12/17 08:00 09/12/17 08:00 09/12/17 08:00 09/12/17 08:00 Intake and Output: 09/12/17 09/12/17 06:59 18:59 Intake Total 240 Output Total 1100 Balance -860 - Medications Medications: Current Medications Dexamethasone (Decadron Inj) 5 mg IVP Q8H [facility] Last Admin: 09/12/17 09:07 Dose: 5 mg Diltiazem HCl (Cardizem Cd) 300 mg PO ACB [facility] Last Admin: 09/12/17 07:47 Dose: 300 mg Heparin Sodium (Porcine) (Heparin) 5,000 units SC Q8 [facility] Last Admin: 09/12/17 06:59 Dose: 5,000 units Hydrochlorothiazide (Microzide) 12.5 mg PO ACL [facility] Last Admin: 09/12/17 11:43 Dose: 12.5 mg Latanoprost (Xalatan Opht) 0 ml OU HS [facility] Last Admin: 09/11/17 21:15 Dose: 2.5 ml Levothyroxine Sodium (Synthroid) 100 mcg PO 0630 [facility] Last Admin: 09/12/17 07:00 Dose: 100 mcg Losartan Potassium (Cozaar) 50 mg PO ACD [facility] Last Admin: 09/11/17 17:28 Dose: 50 mg Pantoprazole Sodium (Protonix Ec Tab) 40 mg PO DAILY [facility] Last Admin: 09/12/17 09:13 Dose: 40 mg Rosuvastatin Calcium (Crestor) 10 mg PO HS [facility] Last Admin: 09/11/17 21:14 Dose: 10 mg - Labs Labs: 09/12/17 07:35 09/12/17 07:35 Attending/Attestation - Attestation I have personally seen and examined this patient.: Yes I have fully participated in the care of the patient.: Yes I have reviewed all pertinent clinical information, including history, physical exam and plan: Yes Notes (Text): 09/12/17 12:39 Patient was seen and examined at 12:15 PM. Medicine Team please speak with Physician Advisor Dr. Owen on 09/13/17 concerning arranging neuroforaminal injection as it appears that Anesthesia has not actually examined the patient. Ryan Haley D.O.
[2017-09-12] MEDS: Levothyroxine 100 MCG TAB PO SCH (07:00)
[2017-09-12 07:46] LABS: BASO % 0.2 % (0.0-2.0); HEMOGLOBIN 14.8 g/dL (11.0-16.0); LYMPH # 0.5 K/uL (1.0-4.3); LYMPH % 6.2 % (20.0-40.0); MEAN CELL VOLUME 91.5 fL (81.0-99.0); MEAN CORPUSCULAR HEMOGLOBIN 32.1 pg (27.0-31.0); MEAN CORPUSCULAR HGB CONC 35.1 g/dL (33.0-37.0); MEAN PLATELET VOLUME 8.5 fL (7.2-11.7); MONO # 0.4 K/uL (0.0-0.8); MONO % 4.3 % (0.0-10.0); NEUT # 7.8 K/uL (1.8-7.0); NEUT % 89.3 % (50.0-75.0); NRBC % 0.1 % (0.0-2.0); PLATELET COUNT 295 K/uL (130-400); RBC 4.62 Mil/uL (3.80-5.20); RED CELL DISTRIBUTION WIDTH 13.6 % (11.5-14.5); WHITE BLOOD COUNT 8.8 K/uL (4.8-10.8)
[2017-09-12] MEDS: diltiaZEM 300 mg/24 Hours CD Cap PO SCH (07:47)
[2017-09-12 08:21] LABS: ALT/SGPT 7 U/L (9-52); AST/SGOT 18 U/L (14-36); BLOOD UREA NITROGEN 27 mg/dL (7-17); CALCIUM 8.9 mg/dl (8.6-10.4); GFR AFRICAN-AMERICAN > 60; GFR NON-AFRICAN AMERICAN > 60
[2017-09-12 08:42] LABS: ALB/GLOB RATIO 0.9 (1.0-2.1); ALBUMIN 3.4 g/dL (3.5-5.0)
[2017-09-12 08:54] LABS: ANISOCYTOSIS SLIGHT; LYMPHOCYTE 6 % (20-40); MONOCYTE 4 % (0-10); NEUTROPHIL 90 % (50-75); PLATELET ESTIMATE NORMAL (NORMAL); POLYCHROMIC SLIGHT; TOTAL CELLS COUNTED 100
[2017-09-12 08:55] LABS: LARGE PLATELETS PRESENT
[2017-09-12] MEDS: Pantoprazole 40 mg EC Tab PO SCH (09:13)
[2017-09-12] MEDS: Latanoprost 2.5 ml Opht Soln OU SCH (22:16)
[2017-09-13] MEDS: Levothyroxine 100 MCG TAB PO SCH (06:24)
[2017-09-13 07:56] LABS: BASO % 0.1 % (0.0-2.0); HEMOGLOBIN 15.6 g/dL (11.0-16.0); LYMPH # 0.6 K/uL (1.0-4.3); LYMPH % 7.9 % (20.0-40.0); MEAN CELL VOLUME 91.5 fL (81.0-99.0); MEAN CORPUSCULAR HEMOGLOBIN 32.2 pg (27.0-31.0); MEAN CORPUSCULAR HGB CONC 35.2 g/dL (33.0-37.0); MEAN PLATELET VOLUME 8.2 fL (7.2-11.7); MONO # 0.4 K/uL (0.0-0.8); MONO % 5.4 % (0.0-10.0); NEUT # 6.7 K/uL (1.8-7.0); NEUT % 86.6 % (50.0-75.0); NRBC % 0.1 % (0.0-2.0); PLATELET COUNT 336 K/uL (130-400); RBC 4.86 Mil/uL (3.80-5.20); RED CELL DISTRIBUTION WIDTH 13.2 % (11.5-14.5); WHITE BLOOD COUNT 7.7 K/uL (4.8-10.8)
--- NOTE | 2017-09-13 08:05 | CON ---
DATE: 09/10/2017 HISTORY OF PRESENT ILLNESS: This is a 72-year-old lady who indicated about 10 days prior to admission began to experience significant low back pain with radiating pain down both legs. The pain is sort of prevalent in the back and down both legs, prevalent in the legs, described down the posterolateral thigh, calf towards her ankle. Denies any numbness. Denies any weakness. Denies any fall or trauma. She was sent to me from the ER once, then had a CAT scan on the outside and was admitted, found to have a compression fracture. PAST MEDICAL HISTORY: Reviewed extensively in the chart. MEDICATIONS: Reviewed extensively in the chart. ALLERGIES: REVIEWED EXTENSIVELY IN THE CHART. Of note, is that, she was put on IV steroids upon admission. PHYSICAL EXAMINATION: She has 5/5 strength throughout. Sensory exam is grossly intact. Straight leg raising interestingly is negative bilaterally. Reflexes are in 1+ knees and ankles. She does have tenderness really in the low lumbar area at about almost the lumbosacral junction. She has Lidoderm patch on there. CT of the compression fractures on top of L4. There is however severe 3-4 disk space collapse. There is marked central and severe foraminal stenosis at 3-4 and moderate to severe at 4-5. IMPRESSION AND PLAN: I would prognosticate that she is suffering more on the basis of the lumbar stenosis than this fracture, which is not all that impressive. I would certainly advocate obtaining an MRI to get a better look at both which will tell us more of the acuity of the fracture as well as the severity of the nerve compression. For management, I would advocate evaluation for an epidural steroid injection. Consult anesthesia pain for evaluation. As I indicated to the patient, we would like to hold out thoughts of surgery as the last resort and to emphasize there is no need for stabilization of this minimal fracture. The surgery would be more like decompression of the caudal nerve roots. Santana Conn MD
[2017-09-13 08:28] LABS: ALBUMIN 3.7 g/dL (3.5-5.0); ALT/SGPT 20 U/L (9-52); AST/SGOT 20 U/L (14-36); BLOOD UREA NITROGEN 31 mg/dL (7-17); CALCIUM 9.1 mg/dl (8.6-10.4); GFR AFRICAN-AMERICAN > 60; GFR NON-AFRICAN AMERICAN > 60
[2017-09-13] MEDS: diltiaZEM 300 mg/24 Hours CD Cap PO SCH (08:33)
[2017-09-13 09:14] LABS: LYMPHOCYTE 10 % (20-40); MONOCYTE 4 % (0-10); NEUTROPHIL 86 % (50-75); PLATELET ESTIMATE NORMAL (NORMAL); TOTAL CELLS COUNTED 100
[2017-09-13] MEDS: Pantoprazole 40 mg EC Tab PO SCH (09:38)
--- NOTE | 2017-09-13 11:31 | CP.PCM.PN ---
<YaneliNathlaie L. - Last Filed: 09/13/17 14:02> Subjective - Date & Time of Evaluation Date of Evaluation: 09/13/17 Time of Evaluation: 07:00 - Subjective Subjective: PGY1- Medicine Progress Note Patient seen and examined at bedside and in no acute distress. Patient says the pain in the back of her legs today is a little worse at rest and she rates it 2/ 10. Patient still cannot get out of bed because of her low back pain. Patient says she has been having softer bowel movements than normal. Patient denies any chest pain, sob, abdominal pain, nausea, vomiting, dysuria. Objective - Vital Signs/Intake and Output Vital Signs (last 24 hours): Temp Pulse Resp BP Pulse Ox 98.1 F 64 18 146/81 96 09/13/17 07:25 09/13/17 07:25 09/13/17 07:25 09/13/17 07:25 09/13/17 07:25 Intake and Output: 09/13/17 09/13/17 06:59 18:59 Intake Total 240 Output Total 1 Balance 239 - Medications Medications: Current Medications Dexamethasone (Decadron Inj) 5 mg IVP Q12H [facility] Last Admin: 09/13/17 10:27 Dose: Not Given Diltiazem HCl (Cardizem Cd) 300 mg PO ACB [facility] Last Admin: 09/13/17 08:33 Dose: 300 mg Heparin Sodium (Porcine) (Heparin) 5,000 units SC Q8 [facility] Last Admin: 09/13/17 06:21 Dose: 5,000 units Hydrochlorothiazide (Microzide) 12.5 mg PO ACL [facility] Last Admin: 09/12/17 11:43 Dose: 12.5 mg Latanoprost (Xalatan Opht) 0 ml OU HS [facility] Last Admin: 09/12/17 22:16 Dose: 2.5 ml Levothyroxine Sodium (Synthroid) 100 mcg PO 0630 [facility] Last Admin: 09/13/17 06:24 Dose: 100 mcg Loperamide HCl (Imodium) 2 mg PO DAILY PRN PRN Reason: Diarrhea Losartan Potassium (Cozaar) 50 mg PO ACD [facility] Last Admin: 09/12/17 17:00 Dose: 50 mg Pantoprazole Sodium (Protonix Ec Tab) 40 mg PO DAILY [facility] Last Admin: 09/13/17 09:38 Dose: 40 mg Rosuvastatin Calcium (Crestor) 10 mg PO HS [facility] Last Admin: 09/12/17 22:16 Dose: 10 mg - Labs Labs: 09/13/17 07:52 09/13/17 07:52 - Constitutional Appears: Non-toxic, No Acute Distress - Head Exam Head Exam: ATRAUMATIC, NORMAL INSPECTION, NORMOCEPHALIC - Eye Exam Eye Exam: EOMI, Normal appearance Pupil Exam: NORMAL ACCOMODATION - ENT Exam ENT Exam: Mucous Membranes Moist - Neck Exam Neck Exam: Full ROM. absent: Tenderness - Respiratory Exam Respiratory Exam: Clear to Ausculation Bilateral, NORMAL BREATHING PATTERN. absent: Rales, Rhonchi, Wheezes, Respiratory Distress, Stridor - Cardiovascular Exam Cardiovascular Exam: REGULAR RHYTHM, RRR, +S1, +S2 - GI/Abdominal Exam GI & Abdominal Exam: Soft, Normal Bowel Sounds. absent: Tenderness - Extremities Exam Extremities Exam: Normal Inspection. absent: Pedal Edema - Back Exam Back Exam: NORMAL INSPECTION, tenderness Additional comments: low back tenderness to palpation and movement - Neurological Exam Neurological Exam: Alert, Awake, Oriented x3 - Psychiatric Exam Psychiatric exam: Normal Affect, Normal Mood - Skin Skin Exam: Intact, Normal Color, Warm Assessment and Plan - Assessment and Plan (Free Text) Assessment: (1) Lumbar vertebral fracture Assessment & Plan: Decadron decreased to 5mg IVP Q12H (from q8h) [facility]surg ([facility]) * Consult pain management for neuroforaminal injection * no neurosurgical intervention advised Pain management advising for kyphoplasty/Pain medication * started on Gabapentin 100mg po TID * Toradol 30mg ivp q8h * Lidocaine patch daily MRI: apparent fracture traversing the S1-S2 segments with edema in S1, S2 as well as S3 segments best seen on sagittal STIR sequence. multilevel degenerative spondylosis as detailed above. PT/OT eval and treat Status: Acute (2) HTN (hypertension) Assessment & Plan: Diltiazem 300mg before breakfast HCTZ 12.5mg before lunch Losartan 50mg before dinner Status: Chronic (3) HLD (hyperlipidemia) Assessment & Plan: Crestor 10mg po HS Status: Chronic (4) Hypothyroidism Assessment & Plan: Synthroid 100mcg daily Status: Chronic (5) Glaucoma Assessment & Plan: Latanprost 1 drop per eye daily Status: Chronic (6) Hiatal hernia Assessment & Plan: Protonix 40mg po daily Status: Chronic (7) Prophylactic measure Assessment & Plan: Heparin 5000 sc q8h * SCDs * Protonix 40mg po daily * Heart healthy and low carb diet * d/c pure wick * increase water intake Status: Acute <Mona Mcgraw V - Last Filed: 09/13/17 17:07> Objective - Vital Signs/Intake and Output Vital Signs (last 24 hours): Temp Pulse Resp BP Pulse Ox 98.1 F 64 18 146/81 96 09/13/17 07:25 09/13/17 07:25 09/13/17 07:25 09/13/17 07:25 09/13/17 07:25 Intake and Output: 09/13/17 09/13/17 06:59 18:59 Intake Total 240 250 Output Total 1 400 Balance 239 -150 - Medications Medications: Current Medications Dexamethasone (Decadron Inj) 5 mg IVP Q12H [facility] Last Admin: 09/13/17 10:27 Dose: Not Given Diltiazem HCl (Cardizem Cd) 300 mg PO ACB [facility] Last Admin: 09/13/17 08:33 Dose: 300 mg Gabapentin (Neurontin) 100 mg PO TID [facility] Last Admin: 09/13/17 13:04 Dose: 100 mg Heparin Sodium (Porcine) (Heparin) 5,000 units SC Q8 [facility] Last Admin: 09/13/17 13:04 Dose: 5,000 units Hydrochlorothiazide (Microzide) 12.5 mg PO ACL [facility] Last Admin: 09/13/17 11:43 Dose: 12.5 mg Ketorolac Tromethamine (Toradol) 30 mg IVP Q8H [facility] Stop: 09/16/17 04:46 Last Admin: 09/13/17 13:04 Dose: 30 mg Latanoprost (Xalatan Opht) 0 ml OU HS [facility] Last Admin: 09/12/17 22:16 Dose: 2.5 ml Levothyroxine Sodium (Synthroid) 100 mcg PO 0630 [facility] Last Admin: 09/13/17 06:24 Dose: 100 mcg Lidocaine (Lidoderm) 1 ea TD DAILY [facility] Last Admin: 09/13/17 13:04 Dose: 1 ea Loperamide HCl (Imodium) 2 mg PO DAILY PRN PRN Reason: Diarrhea Losartan Potassium (Cozaar) 50 mg PO ACD [facility] Last Admin: 09/12/17 17:00 Dose: 50 mg Pantoprazole Sodium (Protonix Ec Tab) 40 mg PO DAILY [facility] Last Admin: 09/13/17 09:38 Dose: 40 mg Rosuvastatin Calcium (Crestor) 10 mg PO HS [facility] Last Admin: 09/12/17 22:16 Dose: 10 mg - Labs Labs: 09/13/17 07:52 09/13/17 07:52 Attending/Attestation - Attestation I have personally seen and examined this patient.: Yes I have fully participated in the care of the patient.: Yes I have reviewed all pertinent clinical information, including history, physical exam and plan: Yes Notes (Text): Patient seen, examined and case discussed with day-time resident. This is my first encounter with the patient. She is awake, alert, oriented X3, no acute distress, conversant. Patient reports at baseline is ambulatory with no assistive device. Patient admitted for low back pain secondary vertebral fracture showed on MRI. Patient was evaluated by neurosurgery who is recommended for epidural steroid injection based on dictation note. Anesthesia is not recommending for steroid injection; recommended for IR evaluation, narcotic pain medications based on pain severity and additional pain medications. I have spoken with physician advisor to gain further clarification as to why not steroid injection since this was recommended by neurosurgery. Assessment/Plan (1) Sacral vertebral fracture Chronic compression deformities Lumbar Stenosis, Severe (L4-L5) Lumbago * Spinal Canal Lumbar MRI (09/10/17): apparent fracture traversing the S1-S2 segments with edema in S1, S2 as well as S3 segments best seen on Sagittal STIR sequence; additional findings noted dis desiccation multiple lumber levels and lumbar stenosis noted in L3-L4, and L4-L5, and L5-S1 * Neurosurgery (Dr Almodovar) on consult-->help appreciated * Noted in his dictation: suffering more from lumbar stenosis than fracture; recommends for MRI; advocating for epidural steroid injection, consult anesthesia pain for evaluation, surgery as last resort there is no need for stabilization of this minimal fracture; Surgery would be more for decompression of caudal nerve roots * Anesthesia (Dr. Burroughs on behalf of Dr. Santana) * Recommending for either IR evaluation of kyphoplasty or to start narcotic medications based on severity of pain; additional pain interventions: toradol/ gabapentin/lidoderm * not advocating for steroid injection-->will f/u with physician advisor given this was a recommendation by neurosurgery as to why not epidural steroid injection for clarification * We will start Toradol/gabapentin/Lidoderm patch at doses recommended. patient is older lady, she is only in pain when she is attempting to sit-up right * We will check with IR to see if patient is a candidate for kyphoplasty or not * PT/OT eval and treat * Decadron 5mg IV Q 8H * Attempt to taper to Q12H Status: Acute (2) HTN (hypertension) Assessment & Plan: * Monitor vital signs * Diltiazem 300mg PO daily * HCTZ 12.5mg PO daily * Losartan 50mg PO daily Status: Chronic (3) HLD (hyperlipidemia) Assessment & Plan: * Crestor 10mg po HS Status: Chronic (4) Hypothyroidism Assessment & Plan: * Synthroid 100mcg daily Status: Chronic (5) Glaucoma Assessment & Plan: * Latanprost 1 drop per eye daily Status: Chronic (6) Hiatal hernia Assessment & Plan: * Protonix 40mg po daily Status: Chronic (7) Prophylactic measure Assessment & Plan: * Heparin 5000 sc q8h * SCDs * Protonix 40mg po daily * Heart healthy and low carb diet * d/c pure wick--> advocate for increase water intake Status: Acute Disposition: optimize pain medication regimen to allow patient to benefit from physical therapy and occupational therapies
[2017-09-13] MEDS: Lidocaine 5% Patch TD SCH (13:04)
[2017-09-13 16:42] VITALS: RESP 20
[2017-09-13] MEDS: Latanoprost 2.5 ml Opht Soln OU SCH (21:19)
[2017-09-14] MEDS: Levothyroxine 100 MCG TAB PO SCH (05:52)
[2017-09-14 07:20] LABS: BASO % 0.1 % (0.0-2.0); HEMOGLOBIN 14.9 g/dL (11.0-16.0); LYMPH # 0.6 K/uL (1.0-4.3); LYMPH % 7.1 % (20.0-40.0); MEAN CELL VOLUME 91.6 fL (81.0-99.0); MEAN CORPUSCULAR HEMOGLOBIN 32.2 pg (27.0-31.0); MEAN CORPUSCULAR HGB CONC 35.2 g/dL (33.0-37.0); MEAN PLATELET VOLUME 8.4 fL (7.2-11.7); MONO # 0.6 K/uL (0.0-0.8); MONO % 7.4 % (0.0-10.0); NEUT # 6.8 K/uL (1.8-7.0); NEUT % 85.4 % (50.0-75.0); PLATELET COUNT 299 K/uL (130-400); RBC 4.63 Mil/uL (3.80-5.20); RED CELL DISTRIBUTION WIDTH 12.9 % (11.5-14.5); WHITE BLOOD COUNT 7.9 K/uL (4.8-10.8)
[2017-09-14 07:38] LABS: ALBUMIN 3.2 g/dL (3.5-5.0); ALT/SGPT 22 U/L (9-52); AST/SGOT 22 U/L (14-36); BLOOD UREA NITROGEN 32 mg/dL (7-17); CALCIUM 8.6 mg/dl (8.6-10.4); GFR AFRICAN-AMERICAN > 60; GFR NON-AFRICAN AMERICAN > 60
[2017-09-14] MEDS: diltiaZEM 300 mg/24 Hours CD Cap PO SCH (08:02)
[2017-09-14 08:23] VITALS: BP 146/81; PULSE 55; TEMP 98; O2SAT 94
[2017-09-14] MEDS: Lidocaine 5% Patch TD SCH (09:29)
[2017-09-14] MEDS: Pantoprazole 40 mg EC Tab PO SCH (09:29)
[2017-09-14 09:35] LABS: LYMPHOCYTE 8 % (20-40); MONOCYTE 6 % (0-10); NEUTROPHIL 86 % (50-75); PLATELET ESTIMATE NORMAL (NORMAL); TOTAL CELLS COUNTED 100
[2017-09-14] MEDS ORDERED: Naproxen 550 mg Tab PO PRN (11:29)
--- NOTE | 2017-09-14 13:55 | CP.PCM.DIS ---
<YaneliNathalie Ashlie - Last Filed: 09/14/17 13:51> Provider - Provider Date of Admission: 09/09/17 15:31 Attending physician: Mona Mcgraw DO Primary care physician: Dr. Miguel Haley Consults: Neurosurg (Dr. Conn) Pain management (Dr. Burroughs) IR (Dr. Robins) Podiatry (Dr. Garcia) Time Spent in preparation of Discharge (in minutes): 40 Diagnosis - Discharge Diagnosis (1) Compression fracture Status: Chronic (2) Intractable back pain Status: Resolved (3) Glaucoma Status: Chronic (4) HLD (hyperlipidemia) Status: Chronic (5) HTN (hypertension) Status: Chronic (6) Hiatal hernia Status: Chronic (7) Hypothyroidism Status: Chronic (8) Magali onychomycosis Status: Chronic Hospital Course - Lab Results Lab Results: Most Recent Lab Values WBC 7.9 K/uL (4.8-10.8) 09/14/17 07:00 RBC 4.63 Mil/uL (3.80-5.20) 09/14/17 07:00 Hgb 14.9 g/dL (11.0-16.0) 09/14/17 07:00 Hct 42.4 % (34.0-47.0) 09/14/17 07:00 MCV 91.6 fL (81.0-99.0) 09/14/17 07:00 MCH 32.2 pg (27.0-31.0) H 09/14/17 07:00 MCHC 35.2 g/dL (33.0-37.0) 09/14/17 07:00 RDW 12.9 % (11.5-14.5) 09/14/17 07:00 Plt Count 299 K/uL (130-400) 09/14/17 07:00 MPV 8.4 fL (7.2-11.7) 09/14/17 07:00 Neut % (Auto) 85.4 % (50.0-75.0) H 09/14/17 07:00 Lymph % (Auto) 7.1 % (20.0-40.0) L 09/14/17 07:00 [place] % (Auto) 7.4 % (0.0-10.0) 09/14/17 07:00 Eos % (Auto) 0.0 % (0.0-4.0) 09/14/17 07:00 Baso % (Auto) 0.1 % (0.0-2.0) 09/14/17 07:00 Neut # (Auto) 6.8 K/uL (1.8-7.0) 09/14/17 07:00 Lymph # (Auto) 0.6 K/uL (1.0-4.3) L 09/14/17 07:00 [place] # (Auto) 0.6 K/uL (0.0-0.8) 09/14/17 07:00 Eos # (Auto) 0.0 K/uL (0.0-0.7) 09/14/17 07:00 Baso # (Auto) 0.0 K/uL (0.0-0.2) 09/14/17 07:00 Neutrophils % (Manual) 86 % (50-75) H 09/14/17 07:00 Lymphocytes % (Manual) 8 % (20-40) L 09/14/17 07:00 Monocytes % (Manual) 6 % (0-10) 09/14/17 07:00 Platelet Estimate Normal (NORMAL) 09/14/17 07:00 Large Platelets Present 09/12/17 07:35 Polychromasia Slight 09/12/17 07:35 Anisocytosis (manual) Slight 09/12/17 07:35 Macrocytosis (manual) Slight 09/12/17 07:35 Sodium 138 mmol/L (132-148) 09/14/17 07:00 Potassium 4.4 mmol/L (3.6-5.2) 09/14/17 07:00 Chloride 105 mmol/L (98-107) 09/14/17 07:00 Carbon Dioxide 25 mmol/L (22-30) 09/14/17 07:00 Anion Gap 13 (10-20) 09/14/17 07:00 BUN 32 mg/dL (7-17) H 09/14/17 07:00 Creatinine 0.7 mg/dL (0.7-1.2) 09/14/17 07:00 Est GFR ( Amer) > 60 09/14/17 07:00 Est GFR (Non-Af Amer) > 60 09/14/17 07:00 Random Glucose 130 mg/dL (65-105) H 09/14/17 07:00 Hemoglobin A1c 5.7 % (4.2-6.5) 09/10/17 07:04 Calcium 8.6 mg/dl (8.6-10.4) 09/14/17 07:00 Phosphorus 3.6 mg/dL (2.5-4.5) 09/14/17 07:00 Magnesium 2.3 mg/dL (1.6-2.3) 09/14/17 07:00 Total Bilirubin 0.6 mg/dL (0.2-1.3) 09/14/17 07:00 AST 22 U/L (14-36) 09/14/17 07:00 ALT 22 U/L (9-52) 09/14/17 07:00 Alkaline Phosphatase 170 U/L (38-126) H 09/14/17 07:00 Total Protein 6.3 g/dL (6.3-8.3) 09/14/17 07:00 Albumin 3.2 g/dL (3.5-5.0) L 09/14/17 07:00 Globulin 3.1 gm/dL (2.2-3.9) 09/14/17 07:00 Albumin/Globulin Ratio 1.0 (1.0-2.1) 09/14/17 07:00 Triglycerides 86 mg/dL (0-149) 09/10/17 07:04 Cholesterol 220 mg/dL (0-199) H 09/10/17 07:04 LDL Cholesterol Direct 117 mg/dL (0-129) 09/10/17 07:04 HDL Cholesterol 67 mg/dL (30-70) 09/10/17 07:04 Free T4 1.27 ng/dL (0.78-2.19) 09/10/17 07:04 TSH 3rd Generation 3.22 mIU/L (0.46-4.68) 09/10/17 07:04 - Hospital Course Hospital Course: Patient is a 72F with past medical history HTN, HLD, hypothyroidism, hiatal hernia, and b/l glaucoma who was evaluated and treated for progressive LBP and difficulty ambulating. Patient was scheduled for CT as per her primary care provider but due to her pain went to the ED. Patient stated that her pain radiated from her low back down her posterior left leg to her knee and down her posterior right leg to her ankle. Patient denied history of trauma and falls. Patient denied numbness, paresthesias, weakness, incontinence to feces or urine. Patient denied CP, SOB, nausea, vomiting, diarrhea, constipation, rash, or weight changes. CT of the lumbar spine showed superior endplate compression fracture of L4 vertebral body, multilevel degenerative disc changes worst at L3-L4, mild spinal canal stenosis, and compression of the right L3 nerve root. Neurosurgery was consulted and recommended MRI of lumbar spine, epidural steroid injections by anesthesia pain management. MRI of the lumbar spine showed fracture traversing the S1 and S2 segments and multilevel degenerative spondylosis. Pain management was consulted and recommended Toradol 30mg IV q8h, Gabapentin 100mg PO TID, and lidocaine patches, which controlled her pain well. Patient was able to ambulate with PT and use the commode before she was discharged. During hospital stay, patient's urine became darker in color and she had a loose bowel movement daily. Patient denied gross blood in urine and stool. Patient had no dysuria or increased frequency with urination. Patient was encouraged to hydrate and was told she could take Imodium as needed for her loose stool. Management of patient's chronic medical conditions including HTN, HLD, hypothyroidism, hiatal hernia and glaucoma continued during her hospital stay. TSH and T4 were checked in normal limits (T4:1.27, TSH: 3.22). HgA1C was found to be 5.7 and lipid panel showed: Triglycerides: 86, Cholesterol: 220, LDL: 117 , HDL: 67. During this hospitalization, podiatry was consulted for onychomycosis of the right great toe. Aseptic debridement of the nails was performed using clippers. This is a summary of the patient's hospital course, please see chart for full details. Discharge Exam - Head Exam Head Exam: ATRAUMATIC, NORMAL INSPECTION, NORMOCEPHALIC - Eye Exam Eye Exam: EOMI, Normal appearance Pupil Exam: NORMAL ACCOMODATION - ENT Exam ENT Exam: Mucous Membranes Moist - Respiratory Exam Respiratory Exam: Clear to PA & Lateral, NORMAL BREATHING PATTERN. absent: Rales, Rhonchi, Wheezes, Stridor - Cardiovascular Exam Cardiovascular Exam: REGULAR RHYTHM, RRR, +S1, +S2 - GI/Abdominal Exam GI & Abdominal Exam: Normal Bowel Sounds, Soft. absent: Tenderness - Extremities Exam Extremities exam: normal inspection - Back Exam Back exam: NORMAL INSPECTION, tenderness - Neurological Exam Neurological exam: Alert, CN II-XII Intact, Oriented x3 Additional comments: full strength in upper and lower extremities - Psychiatric Exam Psychiatric exam: Normal Affect, Normal Mood - Skin Skin Exam: Intact, Normal Color, Warm Discharge Plan - Follow Up Plan Condition: FAIR Disposition: REHAB FACILITY/REHAB UNIT Instructions: Heart Healthy Diet, Low Back Pain (DC), Vertebral Compression Fracture (DC) Additional Instructions: Patient stable for discharge as per Dr. Mcgraw. Patient to follow up with primary doctor and podiatry after JAMES. Patient to continue medications as prescribed. Patient explained that if she lost continence of bowel or bladder or started having loss of sensation in her lower extremities she should return to the ED. Patient understands and agrees. Referrals: Linda Haley MD [Staff Provider] - Tee Garcia DPM [Staff Provider] - <Mona Mcgraw V - Last Filed: 09/14/17 18:41> Provider - Provider Date of Admission: 09/09/17 15:31 Attending physician: Mona Mcgraw, Hospital Course - Lab Results Lab Results: Most Recent Lab Values WBC 7.9 K/uL (4.8-10.8) 09/14/17 07:00 RBC 4.63 Mil/uL (3.80-5.20) 09/14/17 07:00 Hgb 14.9 g/dL (11.0-16.0) 09/14/17 07:00 Hct 42.4 % (34.0-47.0) 09/14/17 07:00 MCV 91.6 fL (81.0-99.0) 09/14/17 07:00 MCH 32.2 pg (27.0-31.0) H 09/14/17 07:00 MCHC 35.2 g/dL (33.0-37.0) 09/14/17 07:00 RDW 12.9 % (11.5-14.5) 09/14/17 07:00 Plt Count 299 K/uL (130-400) 09/14/17 07:00 MPV 8.4 fL (7.2-11.7) 09/14/17 07:00 Neut % (Auto) 85.4 % (50.0-75.0) H 09/14/17 07:00 Lymph % (Auto) 7.1 % (20.0-40.0) L 09/14/17 07:00 [place] % (Auto) 7.4 % (0.0-10.0) 09/14/17 07:00 Eos % (Auto) 0.0 % (0.0-4.0) 09/14/17 07:00 Baso % (Auto) 0.1 % (0.0-2.0) 09/14/17 07:00 Neut # (Auto) 6.8 K/uL (1.8-7.0) 09/14/17 07:00 Lymph # (Auto) 0.6 K/uL (1.0-4.3) L 09/14/17 07:00 [place] # (Auto) 0.6 K/uL (0.0-0.8) 09/14/17 07:00 Eos # (Auto) 0.0 K/uL (0.0-0.7) 09/14/17 07:00 Baso # (Auto) 0.0 K/uL (0.0-0.2) 09/14/17 07:00 Neutrophils % (Manual) 86 % (50-75) H 09/14/17 07:00 Lymphocytes % (Manual) 8 % (20-40) L 09/14/17 07:00 Monocytes % (Manual) 6 % (0-10) 09/14/17 07:00 Platelet Estimate Normal (NORMAL) 09/14/17 07:00 Large Platelets Present 09/12/17 07:35 Polychromasia Slight 09/12/17 07:35 Anisocytosis (manual) Slight 09/12/17 07:35 Macrocytosis (manual) Slight 09/12/17 07:35 Sodium 138 mmol/L (132-148) 09/14/17 07:00 Potassium 4.4 mmol/L (3.6-5.2) 09/14/17 07:00 Chloride 105 mmol/L (98-107) 09/14/17 07:00 Carbon Dioxide 25 mmol/L (22-30) 09/14/17 07:00 Anion Gap 13 (10-20) 09/14/17 07:00 BUN 32 mg/dL (7-17) H 09/14/17 07:00 Creatinine 0.7 mg/dL (0.7-1.2) 09/14/17 07:00 Est GFR ( Amer) > 60 09/14/17 07:00 Est GFR (Non-Af Amer) > 60 09/14/17 07:00 Random Glucose 130 mg/dL (65-105) H 09/14/17 07:00 Hemoglobin A1c 5.7 % (4.2-6.5) 09/10/17 07:04 Calcium 8.6 mg/dl (8.6-10.4) 09/14/17 07:00 Phosphorus 3.6 mg/dL (2.5-4.5) 09/14/17 07:00 Magnesium 2.3 mg/dL (1.6-2.3) 09/14/17 07:00 Total Bilirubin 0.6 mg/dL (0.2-1.3) 09/14/17 07:00 AST 22 U/L (14-36) 09/14/17 07:00 ALT 22 U/L (9-52) 09/14/17 07:00 Alkaline Phosphatase 170 U/L (38-126) H 09/14/17 07:00 Total Protein 6.3 g/dL (6.3-8.3) 09/14/17 07:00 Albumin 3.2 g/dL (3.5-5.0) L 09/14/17 07:00 Globulin 3.1 gm/dL (2.2-3.9) 09/14/17 07:00 Albumin/Globulin Ratio 1.0 (1.0-2.1) 09/14/17 07:00 Triglycerides 86 mg/dL (0-149) 09/10/17 07:04 Cholesterol 220 mg/dL (0-199) H 09/10/17 07:04 LDL Cholesterol Direct 117 mg/dL (0-129) 09/10/17 07:04 HDL Cholesterol 67 mg/dL (30-70) 09/10/17 07:04 Free T4 1.27 ng/dL (0.78-2.19) 09/10/17 07:04 TSH 3rd Generation 3.22 mIU/L (0.46-4.68) 09/10/17 07:04 Attending/Attestation - Attestation I have personally seen and examined this patient.: Yes I have fully participated in the care of the patient.: Yes I have reviewed all pertinent clinical information, including history, physical exam and plan: Yes Notes (Text): Patient seen, examined and case discussed with day-time resident. She is awake, alert, oriented X3, no acute distress, conversant. patient reports today; she completed 200ft with physical therapy. patient seen sitting upright in chair. Patient reports Toradol is helping her. Patient started Lidoderm patch and gabapentin today. Patient is amenable to rehab to optimize her mobility. patient to follow-up with her PMD upon discharge from rehab. Resident has sent copy of discharge summary to patient's PMD upon hospital discharge. Discharge Diagnoses: Assessment/Plan (1) Sacral vertebral fracture Chronic compression deformities Lumbar Stenosis, Severe (L4-L5) Lumbago * Spinal Canal Lumbar MRI (09/10/17): apparent fracture traversing the S1-S2 segments with edema in S1, S2 as well as S3 segments best seen on Sagittal STIR sequence; additional findings noted dis desiccation multiple lumber levels and lumbar stenosis noted in L3-L4, and L4-L5, and L5-S1 * Neurosurgery (Dr Almodovar) on consult-->help appreciated * Noted in his dictation: suffering more from lumbar stenosis than fracture; recommends for MRI; advocating for epidural steroid injection, consult anesthesia pain for evaluation, surgery as last resort there is no need for stabilization of this minimal fracture; Surgery would be more for decompression of caudal nerve roots * Anesthesia (Dr. Burroughs on behalf of Dr. Santana) * Recommending for either IR evaluation of kyphoplasty or to start narcotic medications based on severity of pain; additional pain interventions: toradol/ gabapentin/lidoderm * not advocating for steroid injection-->will f/u with physician advisor given this was a recommendation by neurosurgery as to why not epidural steroid injection for clarification * Patient's pain is controlled with Toradol/gabapentin/Lidoderm patch at doses recommended. * PT/OT eval and treat * Decadron 5mg IV Q 8H * Attempt to taper to Q12H * Pain medication: switch Toradol to Naproxen on discharge. Discussed with patient to eat with food, c/w gabapentin and lidoderm patch (2) HTN (hypertension) Assessment & Plan: * Monitor vital signs * Diltiazem 300mg PO daily * HCTZ 12.5mg PO daily * Losartan 50mg PO daily * continue medications upon discharge Status: Chronic (3) HLD (hyperlipidemia) Assessment & Plan: * Crestor 10mg po HS * continue medications upon discharge Status: Chronic (4) Hypothyroidism Assessment & Plan: * Synthroid 100mcg daily * continue medications upon discharge Status: Chronic (5) Glaucoma Assessment & Plan: * Latanprost 1 drop per eye daily * continue medications upon discharge Status: Chronic (6) Hiatal hernia Assessment & Plan: * Protonix 40mg po daily * continue medications upon discharge Status: Chronic (7) Prophylactic measure Assessment & Plan: * Heparin 5000 sc q8h * SCDs * Protonix 40mg po daily * Heart healthy and low carb diet Status: Acute This is a summary of patient's hospitalization. Please see EMR for further details of record.
== END 2017-09-14 16:00 | DRG 544 ==
LOC: C.ER 12:18 → C.9E 15:31 → C.6T 15:31
PROVIDERS: ADMIT Family Medicine; ATTEND Hospitalist
DX: M48.56XA Collapsed vertebra, not elsewhere classified, lumbar region, initial encounter for fracture (principal); M48.061 Spinal stenosis, lumbar region without neurogenic claudication; M51.36 Other intervertebral disc degeneration, lumbar region; M47.9 Spondylosis, unspecified; E03.9 Hypothyroidism, unspecified; I25.10 Atherosclerotic heart disease of native coronary artery without angina pectoris; I10 Essential (primary) hypertension; M19.90 Unspecified osteoarthritis, unspecified site; B35.1 Tinea unguium; K44.9 Diaphragmatic hernia without obstruction or gangrene; B37.2 Candidiasis of skin and nail; E78.5 Hyperlipidemia, unspecified; E78.00 Pure hypercholesterolemia, unspecified; H40.9 Unspecified glaucoma; Z79.899 Other long term (current) drug therapy; Z90.721 Acquired absence of ovaries, unilateral